=== PATIENT | male | born 1955 | race Caucasian/White ===

== ENCOUNTER 2017-06-20 05:07 | Outpatient (CLI) | payer OTHER | END 2017-06-20 23:59 | disposition home or self-care (01) | LOC: DIABETIC 05:07 | PROVIDERS: ATTEND Specialist | DX: E11.65 Type 2 diabetes mellitus with hyperglycemia (principal) | CPT/HCPCS: G0108 ==

== ENCOUNTER 2017-07-23 03:52 | Outpatient (CLI) | payer OTHER | END 2017-07-23 23:59 | disposition home or self-care (01) | LOC: DIABETIC 03:52 | PROVIDERS: ATTEND Specialist | DX: E11.65 Type 2 diabetes mellitus with hyperglycemia (principal) | CPT/HCPCS: G0108 ==

== ENCOUNTER 2018-08-18 03:07 | Outpatient (CLI) | payer OTHER | END 2018-08-18 23:59 | disposition home or self-care (01) | LOC: DIABETIC 03:07 | PROVIDERS: ATTEND Specialist | DX: E11.65 Type 2 diabetes mellitus with hyperglycemia (principal); Z79.84 Long term (current) use of oral hypoglycemic drugs | CPT/HCPCS: G0108 ==